=== PATIENT | male | born 1975 | race Caucasian/White ===

== ENCOUNTER 2022-10-15 17:41 | Emergency (ER) | payer OTHER ==
[~2022-10-15] VITALS: Ht 172.7 cm; Wt 144.6 kg
[2022-10-15 18:45] LABS: BASO # 0.1 10^3/uL (0.0-0.2); BASO % 0.6 % (0.0-1.0); EOS # 0.1 10^3/uL (0.0-0.5); HEMATOCRIT 43.8 % (42.0-52.0); HEMOGLOBIN 14.1 g/dl (13.5-17.5); LYMPH # 1.4 10^3/uL (1.5-5.0); LYMPH % 16.2 % (24.0-44.0); MEAN CORPUSCULAR HEMOGLOBIN 26.6 pg (27.0-33.0); MEAN CORPUSCULAR HGB CONC 32.2 g/dl (32.0-36.5); MEAN CORPUSCULAR VOLUME 82.6 fl (80.0-96.0); MONO # 0.5 10^3/uL (0.0-0.8); MONO % 5.4 % (2.0-8.0); NEUTROPHILS # 6.7 10^3/uL (1.5-8.5); NEUTROPHILS % 76.2 % (36.0-66.0); PLATELET COUNT, AUTOMATED 228 10^3/uL (150-450); WHITE BLOOD COUNT 8.8 10^3/uL (4.0-10.0)
[2022-10-15 19:04] LABS: CK-MB VALUE MASS < 1.0 NG/ML (<3.6); LIPASE 68 U/L (12-53)
[2022-10-15 19:06] LABS: ALBUMIN 3.6 G/DL (3.2-5.2); ALKALINE PHOSPHATASE 105 U/L (46-116); ALT/SGPT 24 U/L (7.0-40); AST/SGOT < 8 U/L (<34); BILIRUBIN,DIRECT 0.4 MG/DL (<0.4); BILIRUBIN,TOTAL 1.4 MG/DL (0.3-1.2); BLOOD UREA NITROGEN 27 MG/DL (9-23); CALCIUM LEVEL 9.5 MG/DL (8.5-10.1); CARBON DIOXIDE LEVEL 24 MMOL/L (20-31); CHLORIDE LEVEL 103 MMOL/L (98-107); CPK CREATINE PHOSPHOKINASE 30 U/L (46-171); GLOMERULAR FILTRATION RATE > 60.0 (>60); GLUCOSE, FASTING 204 MG/DL (60-100); MB/CK RELATIVE INDEX 3.33 (< OR =4); POTASSIUM SERUM 4.4 MMOL/L (3.5-5.1); SODIUM LEVEL 136 MMOL/L (136-145); TOTAL PROTEIN 7.4 G/DL (5.7-8.2)
[2022-10-15 19:08] LABS: THYROID STIMULATING HORMONE 1.405 uIU/ML (0.55-4.78)
[2022-10-15 19:09] LABS: FREE T4 1.29 NG/DL (0.89-1.76)
[2022-10-15 19:20] LABS: INR 0.91; PROTHROMBIN TIME 12.5 SECONDS (12.5-14.5)
[2022-10-15 19:21] LABS: PARTIAL THROMBOPLASTIN TIME 28.1 SECONDS (24.8-34.2)
[2022-10-15 20:15] LABS: CK-MB VALUE MASS < 1.0 NG/ML (<3.6)
[2022-10-15 20:19] LABS: CPK CREATINE PHOSPHOKINASE 29 U/L (46-171); MB/CK RELATIVE INDEX 3.44 (< OR =4)
[2022-10-15 20:30] VITALS: BP 144/74
== END 2022-10-15 20:40 | disposition home or self-care (01) ==
LOC: M ED 17:41
DX: R07.89 Other chest pain (principal); E11.9 Type 2 diabetes mellitus without complications; I10 Essential (primary) hypertension; E78.5 Hyperlipidemia, unspecified; F41.9 Anxiety disorder, unspecified; F32.9 Major depressive disorder, single episode, unspecified; F12.10 Cannabis abuse, uncomplicated; Z82.49 Family history of ischemic heart disease and other diseases of the circulatory system